=== PATIENT | male | born 1980 | race Caucasian/White ===

== ENCOUNTER 2017-07-22 12:51 | Emergency (ER) | END 2017-07-22 14:29 | disposition home or self-care (01) | DX: L72.3 Sebaceous cyst (principal); F17.210 Nicotine dependence, cigarettes, uncomplicated ==

== ENCOUNTER 2017-07-24 16:06 | Emergency (ER) | payer MEDICAID ==
[~2017-07-24] VITALS: Ht 170.2 cm; Wt 90.0 kg
[~2017-07-24 16:06] MED LIST: ACET500T98 PO; DM/P295L11 PO; DOXY100T20 PO; IBUP-1542 PO; IBUP800T25 PO
[2017-07-24 16:11] VITALS: Ht 170.2 cm; Wt 90.0 kg
[2017-07-24] MEDS ORDERED: BACITRACIN 0.9 GM OINT TOP ONE (18:00)
--- NOTE | 2017-07-24 19:23 | ERD ---
ER Documentation Chief Complaint Date/Time DATE: 07/24/17 TIME: 19:21 Chief Complaint WOUND CHECK ON BACK HPI This is a 37-year-old male presents to the ER for a wound check to a sebaceous cyst that was incised and drained 2 days ago. Redness and swelling has significantly gone down patient does not have any more pain. Per there was a limited discharge earlier today, however area appears much better. He does not have any fevers or chills. ROS 12 point review of systems was done, all negative except per HPI. Medications Home Meds Active Scripts Ibuprofen* (Motrin*) 600 Mg Tab, 600 MG PO Q6, #30 TAB Prov:VAZQUEZ BENJAMIN PA-C 07/22/17 Doxycycline Hyclate* (Doxycycline Hyclate*) 100 Mg Tablet.dr, 100 MG PO BID for 7 Days, #14 TAB Prov:VAZQUEZ BENJAMIN PA-C 07/22/17 Ibuprofen* (Motrin*) 800 Mg Tab, 800 MG PO Q6, #30 TAB Prov:TORSTEN PEREZ PA-C 02/10/16 Reported Medications Dm/P-Ephed/Acetaminoph/Doxylam (Nyquil D Cold & Flu Liquid) 295 Ml Liquid, 295 ML PO PRN 07/24/13 Acetaminophen (Tylenol) 500 Mg Tab, 500 MG PO PRN 07/24/13 Allergies Allergies: Coded Allergies: No Known Allergy (Unverified , 07/24/17) PMhx/Soc Medical and Surgical Hx: pt denies Medical Hx, pt denies Surgical Hx History of Surgery: No Anesthesia Reaction: No Hx Neurological Disorder: No Hx Respiratory Disorders: No Hx Cardiac Disorders: No Hx Psychiatric Problems: No Hx Miscellaneous Medical Probl: No Hx Alcohol Use: Yes (occ) Hx Substance Use: No Hx Tobacco Use: Yes (2 cigs qday) Smoking Status: Current every day smoker Physical Exam Vitals Vital Signs Date Time Temp Pulse Resp B/P Pulse Ox O2 Delivery O2 Flow Rate FiO2 07/24/17 16:11 98.0 61 18 122/66 99 Physical Exam GENERAL: The patient is well developed and appropriate for usual state of health , in no apparent distress. HEENT: Atraumatic. . CHEST: Clear to auscultation bilaterally. There are no rales, wheezes or rhonchi. HEART: Regular rate and rhythm. No murmurs, clicks, rubs or gallops. NEURO: Alert and oriented. SKIN: There is a healing sebaceous cyst to the mid back, there is slight surrounding erythema, however it is not warm to touch not tender to palpation. There is no discharge seen. Results 24 hrs Current Medications Medications (Trade) Dose Ordered Sig/Joni Route PRN Reason Start Time Stop Time Status Last Admin Dose Admin Bacitracin (Bacitracin Oint (Ud)) 1 applic ONCE ONCE TOP 07/24/17 18:00 07/24/17 18:01 DC 07/24/17 18:59 Procedures/MDM Wound shows no evidence of infection, foreign body, neurologic injury, vascular injury, open joint or tendon laceration. Patient appropriate for outpatient follow up. Departure Diagnosis: Primary Impression: Encounter for wound re-check Condition: Stable Patient Instructions: Wound Care Additional Instructions: Llame al doctor TANIKA y [place] CHRISTOPHE PARA DENTRO DE 1-2 HARPER.Dgale a la secretaria que nosotros le instruimos hacer esta christophe.Avise o llame si collier condicin se empeora antes de la christophe. Regresa aqui si peor o no mejor. DAREK WINSTON Jul 24, 2017 19:23
== END 2017-07-24 20:28 | disposition home or self-care (01) ==
LOC: FTE 16:06
DX: Z48.01 Encounter for change or removal of surgical wound dressing (principal); F17.210 Nicotine dependence, cigarettes, uncomplicated
CPT/HCPCS: 99281